=== PATIENT | female | born 1975 | race Caucasian/White ===

== ENCOUNTER 2021-05-22 23:41 | Inpatient (IN) | payer OTHER ==
[~2021-05-22] VITALS: Ht 180.3 cm; Wt 83.9 kg
[2021-05-23 00:44] LABS: CHLORIDE 110 mEq/L (98-107)
[2021-05-23 01:01] LABS: HCG SCREEN NEGATIVE
[2021-05-23 01:16] LABS: BASOPHILS % 0.6 % (0.0-2.0); EOSINOPHILS % 0.5 % (0.0-5.0); HEMATOCRIT. 35.7 % (36.0-48.0); HEMOGLOBIN. 12.2 g/dL (12.0-16.0); LYMPHOCYTES % 15.9 % (20.0-50.0); MEAN CORPUSCULAR HEMOGLOBIN 29.4 pg (28.0-32.0); MEAN CORPUSCULAR VOLUME 85.8 fL (81.0-99.0); MONOCYTES % 7.8 % (2.0-8.0); NEUTROPHILS % 75.2 % (40.0-76.0); PLATELET 407 x1000/uL (130-400); RED BLOOD CELL COUNT 4.16 mill/uL (4.2-5.4); RED CELL DISTRIBUTION WIDTH 13.2 % (11.6-14.6)
[2021-05-23] MEDS ORDERED: PROPOFOL 200MG/20ML VIAL IV ONE ×3 (01:30→11:51)
[2021-05-23] MEDS ORDERED: KETAMINE HCL 50 MG/ML 10ML IV ONE (01:30)
[2021-05-23] MEDS ORDERED: MORPHINE SULFATE 4 MG/ML CPJ (NOT FOR IM USE) IV ONE ×2 (04:30)
[2021-05-23 05:36] LABS: PROTHROMBIN TIME 10.9 sec (9.6-11.0)
[2021-05-23 06:30] LABS: HEPATITIS B SURFACE AB < 3.1 mIU/mL
[2021-05-23] MEDS ORDERED: POTASSIUM CHLORIDE INJ 40 MEQ in DEXT 5% WATER 250 ML IV ONE (09:15)
[2021-05-23] MEDS ORDERED: LIDOCAINE HCL/EPINEPHRINE 1%-EPI 1:100,000 30 ML VIAL INFIL ONE (09:38)
[2021-05-23] MEDS ORDERED: VANCOMYCIN HCL 1 GM/VIAL ONE (09:39)
[2021-05-23] MEDS ORDERED: POLYMYXIN B SULFATE 500000 UNITS/VIAL ONE (09:39)
[2021-05-23] MEDS ORDERED: KCL 20MEQ/100ML X 2 FOR TOTAL KCL 40MEQ/200ML IV SCH (09:45)
[2021-05-23] MEDS ORDERED: MIDAZOLAM HCL 2 MG/2 ML VIAL ONE ×2 (10:04→11:51)
[2021-05-23] MEDS ORDERED: FENTANYL CITRATE/PF 50MCG/ML 2ML VIAL ONE ×2 (10:04→11:51)
[2021-05-23] MEDS ORDERED: ONDANSETRON HCL 4MG/2ML INJ ONE ×2 (10:05→11:56)
[2021-05-23] MEDS ORDERED: DEXAMETHASONE 4MG/ML 1ML VIAL ONE ×2 (10:05→11:56)
[2021-05-23] MEDS ORDERED: CEFAZOLIN 1000MG PREMIX 50 ML IV NR (10:15)
[2021-05-23] MEDS ORDERED: ONDANSETRON HCL 4MG/2ML INJ IV PRN (10:30)
[2021-05-23] MEDS ORDERED: LABETALOL 5MG/ML SYR 20 MG/4 ML SYRINGE IV PRN (10:30)
[2021-05-23] MEDS ORDERED: MEPERIDINE HCL/PF 25MG/ML CPJ IV PRN (10:30)
[2021-05-23] MEDS ORDERED: HYDROMORPHONE HCL/PF 2MG/ML CPJ IV PRN (10:30)
[2021-05-23] MEDS ORDERED: HYDROMORPHONE HCL/PF 2MG/ML (OR) ONE (10:50)
[2021-05-23 16:00] VITALS: BP 120/68
[2021-05-23] MEDS ORDERED: NALOXONE HCL 0.4MG/ML VIAL IV PRN (17:15)
[2021-05-23] MEDS: HYDROCODONE/ACETAMINOPHEN 5/325MG TABLET PO PRN (17:26)
[2021-05-23 18:44] VITALS: BP 120/68
[2021-05-23 20:00] VITALS: BP 108/63
[2021-05-23] MEDS: CEFAZOLIN 1000MG PREMIX 50 ML IV SCH (23:13)
[2021-05-23] MEDS: HYDROCODONE/ACETAMINOPHEN 10/325MG TABLET PO PRN (23:13)
[2021-05-24] VITALS: BP 129/76
[2021-05-24 04:00] VITALS: BP 106/54
[2021-05-24] MEDS: CEFAZOLIN 1000MG PREMIX 50 ML IV SCH ×2 (05:11→14:23)
[2021-05-24] MEDS: HYDROCODONE/ACETAMINOPHEN 5/325MG TABLET PO PRN (05:18)
[2021-05-24 08:00] VITALS: BP 97/48
[2021-05-24] MEDS: HYDROCODONE/ACETAMINOPHEN 10/325MG TABLET PO PRN ×2 (10:09→14:36)
[2021-05-24 12:00] VITALS: BP 99/52
[2021-05-24 16:00] VITALS: BP 101/55
[2021-05-24 20:00] VITALS: BP 119/69
[2021-05-25] VITALS: BP 100/50
[2021-05-25 04:00] VITALS: BP 105/66
[2021-05-25 08:00] VITALS: BP 107/64
[2021-05-25 12:00] VITALS: BP 103/67
[2021-05-25 12:24] VITALS: BP 103/67
== END 2021-05-25 12:30 | disposition home health service (06) | DRG 313 ==
LOC: ER 23:41 → 6EST 05-23 04:59
PROVIDERS: ADMIT Internal Medicine; ATTEND Internal Medicine
PROC: 0QHG06Z Insertion of Intramedullary Internal Fixation Device into Right Tibia, Open Approach (ICD-10-PCS; principal; 2021-05-23)
DX: S82.241A Displaced spiral fracture of shaft of right tibia, initial encounter for closed fracture (principal); E87.6 Hypokalemia; S82.441A Displaced spiral fracture of shaft of right fibula, initial encounter for closed fracture; Z20.822 Contact with and (suspected) exposure to COVID-19; W01.0XXA Fall on same level from slipping, tripping and stumbling without subsequent striking against object, initial encounter; Y93.89 Activity, other specified; Y92.89 Other specified places as the place of occurrence of the external cause; Y99.8 Other external cause status
CPT/HCPCS: 36415; 73590; 76000; 80053; 84703; 85025; 86703; 86706; 86803; 86850; 86900; 87426; 93970; 97116; 97162; 97530; 99291; C1713; J0690; J1100; J1170; J2250; J2270; J2405; J2704; J3010; J3370; J3480; J3490; J7040; L1830